=== PATIENT | female | born 1955 | race Two or more races ===

== ENCOUNTER 2017-08-18 10:49 | Emergency (ER) | payer OTHER ==
[~2017-08-18] VITALS: Ht 162.6 cm; Wt 95.3 kg
[~2017-08-18 10:49] MED LIST: CITALOPRAM HBR20 MG; CLONAZEPAM0.5 MG; LISINOPRIL10 MG; RESTORIL15 M1
[2017-08-18] MEDS ORDERED: KETO10TA2 PO (16:03)
[2017-08-18] MEDS ORDERED: NAPR500T14 PO (16:07)
== END 2017-08-18 16:15 | disposition home or self-care (01) ==
LOC: ER 10:49
DX: R10.32 Left lower quadrant pain (principal)

== ENCOUNTER 2017-10-22 09:39 | Emergency (ER) | payer OTHER ==
[~2017-10-22] VITALS: Ht 165.1 cm; Wt 94.3 kg
[~2017-10-22 09:39] MED LIST changes: +KETO10TA2 PO; +NAPR500T14 PO
== END 2017-10-22 15:23 | disposition home or self-care (01) ==
LOC: ER 09:39
DX: B34.9 Viral infection, unspecified (principal)

== ENCOUNTER 2018-07-24 12:00 | Emergency (ER) | payer OTHER ==
[~2018-07-24] VITALS: Ht 165.1 cm; Wt 97.5 kg
== END 2018-07-24 17:05 | disposition home or self-care (01) ==
LOC: ER 12:00
DX: J11.1 Influenza due to unidentified influenza virus with other respiratory manifestations (principal); J06.9 Acute upper respiratory infection, unspecified

== ENCOUNTER 2019-06-13 14:24 | Emergency (ER) | payer OTHER ==
[~2019-06-13] VITALS: Ht 165.1 cm; Wt 96.2 kg
== END 2019-06-13 19:37 | disposition home or self-care (01) ==
LOC: ER 14:24
DX: N30.81 Other cystitis with hematuria (principal); M54.5 Low back pain

== ENCOUNTER 2022-05-13 11:58 | Emergency (ER) | payer OTHER ==
[~2022-05-13] VITALS: Ht 165.1 cm; Wt 90.7 kg
== END 2022-05-13 15:25 | disposition home or self-care (01) ==
LOC: ER 11:58
DX: M47.22 Other spondylosis with radiculopathy, cervical region (principal); M51.34 Other intervertebral disc degeneration, thoracic region; M51.37 Other intervertebral disc degeneration, lumbosacral region; Z88.0 Allergy status to penicillin; Z88.2 Allergy status to sulfonamides

== ENCOUNTER 2022-12-30 14:41 | Emergency (ER) | payer OTHER ==
[~2022-12-30] VITALS: Ht 165.1 cm; Wt 91.2 kg
[2022-12-30] MEDS ORDERED: CRESTOR5 MG (14:55)
[2022-12-30] MEDS ORDERED: MONTELUKAST SODI4 M1 (14:55)
[2022-12-30] MEDS ORDERED: PEPCID AC20 MG (14:55)
[2022-12-30] MEDS ORDERED: ZESTRIL10 M1 (14:55)
== END 2022-12-30 17:00 | disposition home or self-care (01) ==
LOC: ER 14:41
DX: J06.9 Acute upper respiratory infection, unspecified (principal); Z88.0 Allergy status to penicillin; Z88.2 Allergy status to sulfonamides

== ENCOUNTER 2023-02-12 09:53 | Emergency (ER) | payer OTHER ==
[~2023-02-12] VITALS: Ht 170.2 cm; Wt 82.1 kg
[~2023-02-12 09:53] MED LIST changes: +CRESTOR5 MG; +MONTELUKAST SODI4 M1; +PEPCID AC20 MG; +ZESTRIL10 M1
[2023-02-12] MEDS ORDERED: MACRODANTIN100 M1 PO (14:13)
== END 2023-02-12 14:25 | disposition home or self-care (01) ==
LOC: ER 09:53
DX: N39.0 Urinary tract infection, site not specified (principal); I10 Essential (primary) hypertension; Z88.0 Allergy status to penicillin; Z88.2 Allergy status to sulfonamides

== ENCOUNTER 2023-11-14 12:51 | Emergency (ER) | payer OTHER ==
[~2023-11-14] VITALS: Ht 162.6 cm; Wt 96.2 kg
[~2023-11-14 12:51] MED LIST changes: +MACRODANTIN100 M1 PO
[2023-11-14] MEDS ORDERED: MACROBID 100 M100 MG (13:32)
[2023-11-14 16:32] LABS: URINE APPEARANCE Clear; URINE BILIRRUBIN Negative (NEGATIVE); URINE BLOOD Large; URINE COLOR Yellow; URINE GLUCOSE Negative (NEGATIVE); URINE LEUKOCYTE Trace; URINE NITRATE Negative; URINE PROTEIN 30 (NEGATIVE)
[2023-11-14 16:35] LABS: URINE BACTERIA 375.4 uL (0.0-1933); URINE RBC 328.9 uL (0.0-20.8); URINE WBC 11.2 uL (0.0-23.2)
[2023-11-14] MEDS ORDERED: CLINDAMYCIN PHOSPHATE 150 MG/ML (300mg) IM STA (18:01)
== END 2023-11-14 18:29 | disposition home or self-care (01) ==
LOC: ER 12:51
DX: R30.0 Dysuria (principal); Z88.0 Allergy status to penicillin; Z88.2 Allergy status to sulfonamides; Z91.018 Allergy to other foods
CPT/HCPCS: 96372; 99283; J3490

== ENCOUNTER 2024-06-04 17:09 | Emergency (ER) | payer OTHER ==
[~2024-06-04] VITALS: Ht 167.6 cm; Wt 98.9 kg
[~2024-06-04 17:09] MED LIST changes: +MACROBID 100 M100 MG
[2024-06-04] MEDS ORDERED: DEXAMETHASONE SODIUM PHOSPHATE 4 MG/ML VIAL IM STA (20:13)
[2024-06-04] MEDS ORDERED: CEFTRIAXONE SODIUM 1,000 MG VIAL IM STA (20:14)
[2024-06-04 20:37] LABS: HEMATOCRIT 34.7 % (36.0-45.00); HEMOGLOBIN 11.5 g/dL (12.0-15.00); MEAN CELL VOLUME 79.3 fL (80.00-100.00); MEAN CORPUSCULAR HEMOGLOBIN 26.2 pg (27.00-32.0); PLATELET COUNT 318 K/uL (150-450); RED BLOOD COUNT 4.37 M/uL (4.00-6.00); RED CELL DISTRIBUTION WIDTH 15.9 % (11.5-14.5)
[2024-06-04] MEDS ORDERED: BENADRYL ALLERG25 MG PO (21:09)
== END 2024-06-04 21:34 | disposition home or self-care (01) ==
LOC: ER 17:10
DX: S60.562A Insect bite (nonvenomous) of left hand, initial encounter (principal); W57.XXXA Bitten or stung by nonvenomous insect and other nonvenomous arthropods, initial encounter; Y93.H2 Activity, gardening and landscaping; Y92.017 Garden or yard in single-family (private) house as the place of occurrence of the external cause; Y99.9 Unspecified external cause status; Z88.0 Allergy status to penicillin; Z88.2 Allergy status to sulfonamides; Z91.018 Allergy to other foods
CPT/HCPCS: 36415; 96372; 99283; J0696; J1100

== ENCOUNTER → 2024-09-15 | Emergency (ER) | payer OTHER ==
[~2024-09-15] VITALS: Ht 162.6 cm; Wt 98.9 kg
[~2024-09-15] MED LIST changes: +BENADRYL ALLERG25 MG PO; +EZALLOR SPRINKLE5 MG; +GUAIFEN/DEXTROMETHORPHAN/PE 10 ML BLIST.PACK PO ONE; +GUAIFENESIN/DEXTROMETHORPHAN 5ML BLIST.PACK PO STA; +ZOCOR20 MG
[2024-09-15 10:55] LABS: HEMATOCRIT 34.5 % (36.0-45.00); HEMOGLOBIN 11.4 g/dL (12.0-15.00); MEAN CELL VOLUME 77.8 fL (80.00-100.00); MEAN CORPUSCULAR HEMOGLOBIN 25.7 pg (27.00-32.0); PLATELET COUNT 291 K/uL (150-450); RED BLOOD COUNT 4.43 M/uL (4.00-6.00); RED CELL DISTRIBUTION WIDTH 16.2 % (11.5-14.5)
[2024-09-15 11:36] LABS: CALCIUM 9.4 mg/dL (8.5-10.1); CREATININE SERUM 0.77 mg/dL (0.55-1.02); GFR 74.55; POTASSIUM 3.97 mEq/L (3.5-5.1)
== END | disposition home or self-care (01) ==
LOC: ER 08:06
PROVIDERS: General Practice
DX: B34.9 Viral infection, unspecified (principal); Z20.822 Contact with and (suspected) exposure to COVID-19; I10 Essential (primary) hypertension; Z88.0 Allergy status to penicillin; Z88.2 Allergy status to sulfonamides; Z91.018 Allergy to other foods